=== PATIENT | male | born 1960 | race Caucasian/White ===

== ENCOUNTER 2017-07-14 05:50 | Day surgery (SDC) | payer MEDICAID ==
[2017-07-14] MEDS ORDERED: Midazolam 1 MG/ML 2 ML SDV IV ONE ×3 (05:51→06:54)
[2017-07-14] MEDS ORDERED: fentaNYL 100 MCG/2 ML SDV IV ONE ×3 (05:51→06:53)
[2017-07-14] MEDS ORDERED: Sodium Chloride 0.9% 10 ML Syringe FLUSH PRN (06:00)
[2017-07-14] MEDS ORDERED: Dextrose 5%-0.45% NaCl 1,000 ML IV SCH (06:00)
[2017-07-14] MEDS ORDERED: Midazolam 1 MG/ML 2 ML SDV ONE (06:07)
[2017-07-14] MEDS ORDERED: fentaNYL 100 MCG/2 ML SDV ONE (06:08)
--- NOTE | 2017-07-14 07:19 | OR ---
DATE: PROCEDURE: Esophagogastroduodenoscopy and multiple pinch biopsies. INSTRUMENT USED: GIF-H180 Olympus video panendoscope. PREMEDICATIONS: No oral topical anesthesia used. Fentanyl 100 mcg intravenous. Versed 2 mg intravenous. The procedure was done under pulse oximetry, BP recording, and environmental monitoring technician. INDICATION: The patient with persistent chest as well as upper abdominal pain, as well as heartburn, unexplained, and not responsive to medical measures. He has known chronic hepatitis C. Esophagogastroduodenoscopy is performed for detection of any active erosive lesions, Baird's esophagus and/or malignancy also under consideration, H. pylori status to be determined, endoscopic hemostasis therapy if needed. DESCRIPTION OF PROCEDURE: The scope was passed with ease. Adequate visualization of the esophagus was made from proximal to distal areas. No upper esophageal lesions identified. No distal esophageal stricture. No uphill or downhill esophageal varices. No Idalia-Maurice tear. No evidence of erosive esophagitis by [place] criteria. No esophageal polyp or tumor mass identified. Z-line was seen at around 40 cm distal to the oral verge, configuration consistent with grade 1 by ZAP classification. No esophageal polyp or tumor mass identified. No proximal gastric varices noted. Gastric fundus examination by retroflexion showed no polypoid lesions. No gastric ulcer, malignant mass, or vascular ectasia identified. Duodenal bulb showed no ulcer. Visualized second part of the duodenum was unremarkable. Multiple pinch biopsies were taken from the gastric antrum and proximal body and sent for PyloriTek test for H. pylori, and if negative in an hour, tissue is to be sent for histopathology. No bleeding was noted from any of the visualized areas at the completion of examination. Photographs were taken of the duodenal bulb, gastric antrum, fundus, and distal esophagus. IMPRESSION: Normal study. The patient tolerated the procedure well. [facility] /[id number]
== END 2017-07-14 08:45 | disposition home or self-care (01) ==
LOC: DL.ENDO 05:50
PROVIDERS: ATTEND Internal Medicine Gastroenterology
DX: R12 Heartburn (principal); R07.9 Chest pain, unspecified; R10.10 Upper abdominal pain, unspecified; B18.2 Chronic viral hepatitis C; F12.90 Cannabis use, unspecified, uncomplicated
CPT/HCPCS: 87077; J2250; J3010; J7042

== ENCOUNTER 2021-02-21 16:44 | Emergency (ER) | payer MEDICAID ==
[2021-02-21] MEDS ORDERED: Diphtheria,Pertussis(Acell),Tetanus Vaccine 0.5 ML Syringe IM ONE (17:24)
[2021-02-21] MEDS ORDERED: Bacitracin Oint 1 GM U/D Packet TOP ONE (17:24)
--- NOTE | 2021-02-21 17:30 | EDM.PDOC ---
ED HPI GENERAL MEDICAL PROBLEM - General Chief Complaint: Laceration Stated Complaint: RIGHT THUMB KNUCKLE, 2 INCH CUT. Time Seen by Provider: 02/21/21 17:15 Source of Information: Reports: Patient History Limitations: Reports: No Limitations - History of Present Illness INITIAL COMMENTS - FREE TEXT/NARRATIVE: This 60 yo male patient reports to the ED with a cut to his right thumb. The patient reports he was reaching for his hammer at about noon today when he cut his hand on a nail. The patient reports he noticed increased swelling in the area since the incident. The patient reports he does need a tetanus shot. Onset: Today Duration: Hour(s):, Constant Location: Reports: Upper Extremity, Right Quality: Reports: Ache, Dull Severity: Mild Improves with: Reports: None Worsens with: Reports: None Context: Reports: Other Associated Symptoms: Reports: No Other Symptoms Right Hand Pain Score (Numeric/FACES): 4 - Related Data Allergies Allergy/AdvReac Type Severity Reaction Status Date / Time No Known Allergies Allergy Verified 02/21/21 17:07 Home Meds: Home Meds . [No Known Home Meds] 07/13/17 [History] Past Medical History HEENT History: Reports: None Cardiovascular History: Reports: None Respiratory History: Reports: None Gastrointestinal History: Reports: Colon Polyp, Hepatitis Genitourinary History: Reports: None Musculoskeletal History: Reports: None Neurological History: Reports: None Psychiatric History: Reports: None Endocrine/Metabolic History: Reports: None Hematologic History: Reports: None Immunologic History: Reports: None Oncologic (Cancer) History: Reports: None Other Dermatologic History: spots on arms - Infectious Disease History Infectious Disease History: Reports: Chicken Pox, Hepatitis C, Mumps - Past Surgical History Head Surgeries/Procedures: Reports: None HEENT Surgical History: Reports: None Cardiovascular Surgical History: Reports: None GI Surgical History: Reports: Colonoscopy Musculoskeletal Surgical History: Reports: Arthroscopic Knee Social & Family History - Tobacco Use Tobacco Use Status *Q: Current Every Day Tobacco User Years of Tobacco use: 46 Packs/Tins Daily: 0.5 Second Hand Smoke Exposure: No - Caffeine Use Caffeine Use: Reports: Coffee Caffeine Use Comment: 36 cups daily - Recreational Drug Use Recreational Drug Use: No ED ROS GENERAL - Review of Systems Review Of Systems: Comprehensive ROS is negative, except as noted in HPI. ED EXAM, SKIN/RASH Exam: See Below Exam Limited By: No Limitations General Appearance: Alert, WD/WN, No Apparent Distress Eye Exam: Bilateral Eye: EOMI, Normal Inspection, PERRL Ears: Normal External Exam, Normal Canal, Hearing Grossly Normal, Normal TMs Nose: Normal Inspection, Normal Mucosa, No Blood Throat/Mouth: Normal Inspection, Normal Lips, Normal Teeth, Normal Gums, Normal Oropharynx, Normal Voice, No Airway Compromise Head: Atraumatic, Normocephalic Neck: Normal Inspection, Supple, Non-Tender, Full Range of Motion Respiratory/Chest: No Respiratory Distress, Normal Breath Sounds Cardiovascular: Regular Rate, Rhythm (Male) Exam: Deferred Rectal (Males) Exam: Deferred Extremities: Arm Pain (Right hand/thumb pain and swelling) Neurological: Alert, Oriented, CN II-XII Intact, Normal Cognition, Normal Gait, Normal Reflexes, No Motor/Sensory Deficits Psychiatric: Normal Affect, Normal Mood Skin: Warm, Normal Color, No Rash, Wound/Incision Location, Skin: Upper Extremity, Right Characteristics: Linear Lymphatic: No Adenopathy Course - Vital Signs Last Recorded V/S: Last Vital Signs Temp 96.9 F 02/21/21 17:02 Pulse 61 02/21/21 17:02 Resp 16 02/21/21 17:02 BP 126/84 02/21/21 17:02 Pulse Ox 95 02/21/21 17:02 - Orders/Labs/Meds Orders: Active Orders 24 hr Category Date Time Status Vaccine to be Administered/Admin Charge [RC] ASDIRECTED Care 02/21/21 17:24 Ordered Bacitracin [Bacitracin Oint 1 GM] Med 02/21/21 17:24 Once 1 dose TOP ONETIME ONE Diphth,Pertuss(Acell),Tet Vac [Boostrix] Med 02/21/21 17:24 Once 0.5 ml IM .ONCE ONE Departure - Departure Time of Disposition: 17:28 Disposition: Home, Self-Care 01 Condition: Fair Clinical Impression: Superficial laceration of hand Qualifiers: Encounter type: initial encounter Laterality: right Qualified Code(s): S61.411A - Laceration without foreign body of right hand, initial encounter - Discharge Information *PRESCRIPTION DRUG MONITORING PROGRAM REVIEWED*: Not Applicable *COPY OF PRESCRIPTION DRUG MONITORING REPORT IN PATIENT PREMA: Not Applicable Instructions: Nonsutured Laceration Care Care Plan Goals: The patient was advised of the examination results during the visit. The wound was cleaned and dressed with antibiotic ointment during the visit. The patient was given a Boostrix injection during the visit. The patient was encouraged to keep the area clean and dry over the next 24 hours. If the patient has any additional symptoms or concerns, the patient should either return to the emergency department or visit his primary care facility. Sepsis Event Note (ED) - Evaluation Sepsis Screening Result: No Definite Risk - Focused Exam Vital Signs: Vital Signs Temp Pulse Resp BP Pulse Ox 02/21/21 17:02 96.9 F 61 16 126/84 95 - My Orders Last 24 Hours: My Active Orders 02/21/21 17:24 Vaccine to be Administered/Admin Charge [RC] ASDIRECTED Bacitracin [Bacitracin Oint 1 GM] 1 dose TOP ONETIME ONE Diphth,Pertuss(Acell),Tet Vac [Boostrix] 0.5 ml IM .ONCE ONE - Assessment/Plan Last 24 Hours: My Active Orders 02/21/21 17:24 Vaccine to be Administered/Admin Charge [RC] ASDIRECTED Bacitracin [Bacitracin Oint 1 GM] 1 dose TOP ONETIME ONE Diphth,Pertuss(Acell),Tet Vac [Boostrix] 0.5 ml IM .ONCE ONE
== END 2021-02-21 17:49 | disposition home or self-care (01) ==
LOC: DL.ED 16:44
DX: S61.011A Laceration without foreign body of right thumb without damage to nail, initial encounter (principal); Z72.0 Tobacco use; Z23 Encounter for immunization; W45.0XXA Nail entering through skin, initial encounter
CPT/HCPCS: 90471; 90715; 99282